=== PATIENT | female | born 1990 ===

== ENCOUNTER 2021-12-20 23:00 | Emergency (ER) | payer OTHER ==
--- NOTE | 2021-12-21 00:03 | ER ---
Nurse's Notes [facility] Name: Katey Lama Age: 31 yrs Sex: Female : 1990 Arrival Date: 12/20/2021 Time: 23:02 Bed 2 Private MD: Diagnosis: Nonpurulent mastitis associated with Presentation: 12/20 23:14 Chief complaint: Patient states: "I think I have mastitis from using the wrong size hb breast pump." Pt reports right nipple redness, pain, and swelling x 4 days, malaise and chills x 2 days. Coronavirus screen: At this time, the client does not indicate any symptoms associated with coronavirus-19. Ebola Screen: No symptoms or risks identified at this time. Risk Assessment: Do you want to hurt yourself or someone else? Patient reports no desire to harm self or others. Onset of symptoms was December 16, 2021. 23:14 Method Of Arrival: Ambulatory hb 23:14 Acuity: NELSON 3 hb 12/21 00:12 Initial Sepsis Screen: Does the patient meet any 2 criteria? No. Patient's initial ll3 sepsis screen is negative. Does the patient have a suspected source of infection? No. Patient's initial sepsis screen is negative. Historical: - Allergies: 12/20 23:16 No Known Allergies; hb - PMHx: 23:16 None; hb - PSHx: 23:16 None; hb Screenin/26 00:11 Abuse screen: Denies threats or abuse. Denies injuries from another. Nutritional ll3 screening: No deficits noted. Tuberculosis screening: No symptoms or risk factors identified. Fall Risk None identified. Assessment: 12/20 23:56 General: Appears uncomfortable, Behavior is calm, cooperative. Pain: Complains of pain ll3 in right breast. Neuro: Level of Consciousness is awake, alert, obeys commands, Oriented to person, place, time, situation. Derm: Reports pain States "I have mastitis", swelling and redness noted to right breast. Musculoskeletal: Circulation, motion, and sensation intact. Vital Signs: 23:14 BP 105 / 63; Pulse 66; Resp 16; Temp 99.1; Pulse Ox 100% on R/A; Weight 75.75 kg; hb Height 5 ft. 2 in. (157.48 cm); Pain 4/10; 23:58 BP 113 / 68; Pulse 66; Resp 18; Pulse Ox 100% on R/A; ll3 23:14 Body Mass Index 30.54 (75.75 kg, 157.48 cm) ED Course: 23:02 Patient arrived in ED. ag3 23:16 Triage completed. hb 23:16 Arm band placed on. hb 23:38 Makeda Omer MD is Attending Physician. sd2 12/21 00:01 Yina Graham RN is Primary Nurse. ll3 00:11 Patient has correct armband on for positive identification. Bed in low position. Call ll3 light in reach. Side rails up X 1. 00:11 No provider procedures requiring assistance completed. Patient did not have IV access ll3 during this emergency room visit. Administered Medications: 00:05 Drug: KeFLEX (cephalexin) 500 mg Route: PO; ll3 00:10 Follow up: Response: No adverse reaction ll3 Medication: 00:12 VIS not applicable for this client. ll3 Outcome: 00:03 Discharge ordered by . sd2 00:11 Discharged to home ambulatory. ll3 00:11 Condition: stable 00:11 Discharge instructions given to patient, Instructed on discharge instructions, follow up and referral plans. medication usage, Demonstrated understanding of instructions, follow-up care, medications, Prescriptions given X 1. 00:12 Patient left the ED. ll3 Signatures: Kayla Melendrez RN ANIKA CorralesCharito stewart 3 Yina Graham RN RN 3 Makeda Omer MD MD vt2
--- NOTE | 2021-12-21 00:04 | EDPHYS ---
Physician Documentation [facility] Name: Katey Lama Age: 31 yrs Sex: Female : 1990 Arrival Date: 12/20/2021 Time: 23:02 Bed 2 Private MD: ED Physician Makeda Omer HPI: 12/20 23:54 This 31 yrs old Female presents to ER via Ambulatory with complaints of Breast Problem, sd2 Fever. 23:54 31 yo F presents with CC of R breast pain and fever. Was but her child sd2 had jaundice and she had to stop and was pumping for the past 5-6 days with the wrong size breast pump which caused a "tear" in her breast. She reports she has been taking care of it and keeping the area clean but has had clogged ducts that she was able to treat herself at home twice so far. She reports subjective fever and chills that started tonight which prompted her to come in as she believes she likely has mastitis now and has had it 3 times previously.. Historical: - Allergies: 23:16 No Known Allergies; hb - PMHx: 23:16 None; hb - PSHx: 23:16 None; hb ROS: 23:58 Constitutional: Negative for fever, chills, and weight loss, Eyes: Negative for injury, sd2 pain, redness, and discharge, ENT: Negative for injury, pain, and discharge, Cardiovascular: Negative for chest pain, palpitations, and edema, Respiratory: Negative for shortness of breath, cough, wheezing. Abdomen/GI: Negative for abdominal pain, nausea, vomiting, diarrhea. MS/Extremity: Negative for injury and deformity, Skin: Negative for injury and discoloration. Neuro: Negative for headache, numbness and tingling. Exam: 23:58 Constitutional: This is a well developed, well nourished patient who is awake, alert, sd2 and in no acute distress. Head/Face: Normocephalic, atraumatic. Eyes: EOMI, normal conjunctiva bilaterally Chest/axilla: Normal chest wall appearance and motion. Nontender with no deformity. Cardiovascular: Regular rate and rhythm with a normal S1 and S2. No gallops, murmurs, or rubs. 2+ distal pulses. Respiratory: Lungs have equal breath sounds bilaterally, clear to auscultation and percussion. No rales, rhonchi or wheezes noted. No increased work of breathing, no retractions or nasal flaring. Skin: Warm, dry with normal turgor. Normal color with no lesions. R nipple appears erythematous and slightly warm and tender to the touch. No appreciable significant surrounding cellulitis. MS/ Extremity: Pulses equal, no cyanosis. Neurovascular intact. Full, normal range of motion. Ambulatory without difficulty. Vital Signs: 23:14 BP 105 / 63; Pulse 66; Resp 16; Temp 99.1; Pulse Ox 100% on R/A; Weight 75.75 kg; hb Height 5 ft. 2 in. (157.48 cm); Pain 4/10; 23:58 BP 113 / 68; Pulse 66; Resp 18; Pulse Ox 100% on R/A; ll3 23:14 Body Mass Index 30.54 (75.75 kg, 157.48 cm) hb MDM: 23:46 Patient medically screened. sd2 23:58 Differential diagnosis: mastitis, clogged duct, doubt sepsis among others. Data sd2 reviewed: vital signs, nurses notes. Counseling: I had a detailed discussion with the patient and/or guardian regarding: the historical points, exam findings, and any diagnostic results supporting the discharge/admit diagnosis, the need for outpatient follow up, to return to the emergency department if symptoms worsen or persist or if there are any questions or concerns that arise at home. Medical screen evaluation completed. [facility] emergency medical condition absent. ED course: Pt with no signs of sepsis at this time. Well appearing and nontoxic. Will treat as uncomplicated mastitis. pt has tolerated Dicloxacillin well in the past. Will provide Rx. Pt verbalizes understanding of discharge plan and strict return precautions. . Administered Medications: 12/21 00:05 Drug: KeFLEX (cephalexin) 500 mg Route: PO; ll3 00:10 Follow up: Response: No adverse reaction ll3 Disposition Summary: 12/21/21 00:03 Discharge Ordered Location: Home sd2 Problem: new sd2 Symptoms: are unchanged sd2 Condition: Stable sd2 Diagnosis - Nonpurulent mastitis associated with sd2 Followup: sd2 - With: Private Physician - When: 2 - 3 days - Reason: Recheck today's complaints, Continuance of care, Re-evaluation by your physician Discharge Instructions: - Discharge Summary Sheet sd2 - Mastitis sd2 - and Mastitis sd2 Forms: - Medication Reconciliation Form sd2 - Thank You Letter sd2 - Antibiotic Education sd2 - Prescription Opioid Use sd2 Prescriptions: - Dicloxacillin 500 mg Oral Capsule - take 1 capsule by ORAL route every 6 hours for 10 days; 40 capsule; Refills: 0, sd2 Product Selection Permitted Signatures: Kayla Melendrez RN ANIKA Yina Graham RN RN 3 Makeda Omer MD MD sd2 Corrections: (The following items were deleted from the chart) 00:00 12/20 23:54 31 yo F presents with CC of R breast pain and fever. Was but sd2 her child had jaundice and she had to stop and was pumping for . sd2
[2021-12-21] MEDS ORDERED: CEPHALEXIN 250 MG CAP ONE (00:14)
[2021-12-23 01:45] VITALS: TEMP 99.1; O2SAT 100
[2021-12-23 02:07] VITALS: BP 113/68
== END 2021-12-21 00:12 | disposition home or self-care (01) ==
LOC: ER 23:00
DX: O91.23 Nonpurulent mastitis associated with lactation (principal)
CPT/HCPCS: 99283